=== PATIENT | female | born 1985 | race Caucasian/White ===

== ENCOUNTER 2017-03-12 17:19 | Emergency (ER) | payer BC ==
[~2017-03-12] VITALS: Ht 165.1 cm; Wt 54.0 kg
[2017-03-12 17:36] VITALS: BP 158/99
== END 2017-03-12 19:54 | disposition left against medical advice (07) ==
LOC: ER 18:41
DX: Z53.21 Procedure and treatment not carried out due to patient leaving prior to being seen by health care provider (principal)